=== PATIENT | male | born 1995 | race Caucasian/White ===

== ENCOUNTER 2019-12-28 17:36 | Emergency (ER) | payer SELFPAY ==
[~2019-12-28 17:36] MED LIST: Iopamidol-370 76% 500 ML 1 ML ONE
--- NOTE | 2019-12-28 18:06 | RAD ---
Chest AP view INDICATION: Chest pain COMPARISON: None FINDINGS: Lungs:The lungs are clear Cardiac silhouette:The cardiomediastinal silhouette appears within normal limits. Pulmonary vasculature:Normal Pleural spaces:No pleural effusion or pneumothorax is demonstrated. Upper abdomen:No abnormality seen. Osseous structures: No acute osseous abnormality. Additional findings:Mild thoracolumbar scoliosis IMPRESSION: No acute cardiopulmonary abnormality.
[2019-12-28 18:30] LABS: #Basophils 0.1 thou/uL (0.0-0.2); #Eosinphils 0.1 thou/uL (0.0-0.7); #Lymphocytes 2.9 thou/uL (1.20-3.40); #Monocytes 0.5 thou/uL (0.11-0.59); %Basophils 1.2 % (0.0-1.0); %Eosinophils 1.5 % (0.0-10.0); %Lymphocytes 44.2 % (21.0-51.0); %Monocytes 7.6 % (0.0-10.0); %Neutrophils 45.5 % (42.0-75.0); Hemoglobin 15.5 g/dL (14.0-18.0); Mean Corpuscular HGB CONC 33.9 g/dL (32.0-36.0); Mean Corpuscular Hemoglobin 28.3 pg (27.0-31.0); Mean Corpuscular Volume 83.4 fL (78.0-98.0); Mean Platelet Volume 7.1 fL (7.4-10.4); Platelet Count 291 thou/uL (130-400); RBC Distribution Width 11.3 % (11.5-14.5); Red Blood Cell (RBC) Count 5.48 mill/uL (4.70-6.10); White Blood Cell (WBC) Count 6.5 thou/uL (4.8-10.8)
--- NOTE | 2019-12-28 18:54 | CT ---
CTA Angio Chest W WO Con 12/28/2019 6:14 PM Indication: Chest pain and left arm pain with lightheadedness for the last 3 weeks Technique: Multiple CTA images were obtained of the thorax with IV contrast. 3-D rendering: MIP wilda nstructed images were created and reviewed. Comparison: No relevant prior studies available. Findings: Pulmonary arteries: No central or segmental pulmonary embolus is evident. Heart and Aorta: Normal appearing. Mediastinum:Normal appearing. No enlarged lymph nodes. Lungs:The lungs are clear. Pleural space: Clear. Upper Abdomen: No acute abnormality. Osseous Structures: No acute osseous abnormality. Mild thoracolumbar scoliosis. Soft tissues:No abnormality. Other findings:None. Impression: No central or segmental pulmonary embolus.
[2019-12-28 18:56] LABS: ALT (SGPT) 9 U/L (8-55); AST (SGOT) 14 U/L (5-34); Albumin 5.1 g/dL (3.5-5.0); Alkaline Phosphatase 41 U/L (40-110); Anion Gap 13 mmol/L (10-20); BUN (Urea Nitrogen) 12 mg/dL (8.9-20.6); Bilirubin, Total 0.4 mg/dL (0.2-1.2); CK (CPK) 66 U/L (30-200); Calc. Creatinine Clearance 0 mL/min (70-130); Calcium 10.1 mg/dL (7.8-10.44); Carbon Dioxide 26 mmol/L (22-29); Chloride 102 mmol/L (98-107); Estimated GFR-MDRD 74; Globulin 3.1 g/dL (2.4-3.5); Glucose 93 mg/dL (70-105); Potassium 4.1 mmol/L (3.5-5.1); Protein, Total 8.2 g/dL (6.0-8.3); Sodium 137 mmol/L (136-145)
== END 2019-12-28 20:12 | disposition home or self-care (01) ==
LOC: ERS 17:36
DX: R07.9 Chest pain, unspecified (principal)
CPT/HCPCS: 71045; 71275; 80053; 82550; 84443; 84484; 85025; 93005; Q9967

== ENCOUNTER 2020-01-15 12:02 | Emergency (ER) | payer BC, SELFPAY ==
--- NOTE | 2020-01-15 12:37 | RAD ---
Portable frontal chest radiograph: 01/15/2020 COMPARISON: 12/28/2019 HISTORY: Cough, vomiting blood, chest tightness FINDINGS: There is stable mid thoracic spine dextroscoliosis. No pneumothorax, pleural fluid, focal c onsolidation, or alveolar edema. IMPRESSION: No acute findings.
[2020-01-15 12:42] LABS: #Eosinphils 0.1 thou/uL (0.0-0.7); #Lymphocytes 1.9 thou/uL (1.20-3.40); #Monocytes 0.3 thou/uL (0.11-0.59); #Neutrophils 2.7 thou/uL (1.40-6.50); %Basophils 0.5 % (0.0-1.0); %Monocytes 6.4 % (0.0-10.0); %Neutrophils 54.1 % (42.0-75.0); Hemoglobin 15.7 g/dL (14.0-18.0); Mean Corpuscular HGB CONC 35.5 g/dL (32.0-36.0); Mean Corpuscular Hemoglobin 29.6 pg (27.0-31.0); Mean Corpuscular Volume 83.5 fL (78.0-98.0); Mean Platelet Volume 6.7 fL (7.4-10.4); Platelet Count 271 thou/uL (130-400); RBC Distribution Width 11.3 % (11.5-14.5); White Blood Cell (WBC) Count 5.1 thou/uL (4.8-10.8)
[2020-01-15 13:04] LABS: ALT (SGPT) 14 U/L (8-55); AST (SGOT) 15 U/L (5-34); Albumin 5.1 g/dL (3.5-5.0); Alkaline Phosphatase 39 U/L (40-110); Anion Gap 14 mmol/L (10-20); BUN (Urea Nitrogen) 10 mg/dL (8.9-20.6); Bilirubin, Total 0.6 mg/dL (0.2-1.2); CK (CPK) 59 U/L (30-200); Calc. Creatinine Clearance 0 mL/min (70-130); Calcium 10.1 mg/dL (7.8-10.44); Carbon Dioxide 27 mmol/L (22-29); Chloride 102 mmol/L (98-107); Estimated GFR-MDRD Greater than 90; Glucose 89 mg/dL (70-105); Potassium 3.9 mmol/L (3.5-5.1); Protein, Total 8.1 g/dL (6.0-8.3); Sodium 139 mmol/L (136-145)
[2020-01-15 13:15] LABS: CKMB 0.3 ng/mL (0-6.6)
== END 2020-01-15 15:33 | disposition home or self-care (01) ==
LOC: ERS 12:02
DX: R07.89 Other chest pain (principal)
CPT/HCPCS: 71045; 80053; 82550; 82553; 83880; 84484; 85025; 93005; 93306; 96360

== ENCOUNTER 2020-04-09 02:29 | Emergency (ER) | payer BC ==
[2020-04-09] MEDS ORDERED: predniSONE 20 MG TAB ONE (02:50)
== END 2020-04-09 02:54 | disposition home or self-care (01) ==
LOC: ERS 02:29
DX: J45.901 Unspecified asthma with (acute) exacerbation (principal); M41.9 Scoliosis, unspecified; Z79.51 Long term (current) use of inhaled steroids
CPT/HCPCS: 99284; J7512

== ENCOUNTER 2020-04-21 05:35 | Emergency (ER) | payer BC ==
--- NOTE | 2020-04-21 08:31 | RAD ---
PORTABLE CHEST 1 VIEW: DATE: 04/21/2020. TIME: 5:18 AM. HISTORY: Chest pain. FINDINGS: Comparison is made with the exam of 01/15/2020. The heart size is normal. The lungs are expanded without focal areas of consolidation, pneumothorace s, or pleural effusions. IMPRESSION: No radiographic evidence of acute cardiopulmonary disease. POS: [facility]
== END 2020-04-21 06:31 | disposition home or self-care (01) ==
LOC: ERS 05:35
DX: R06.00 Dyspnea, unspecified (principal); M41.9 Scoliosis, unspecified
CPT/HCPCS: 71045

== ENCOUNTER 2020-05-23 13:01 | Outpatient (CLI) | payer BC ==
--- NOTE | 2020-05-23 14:33 | RAD ---
CHEST 2 VIEWS: Date: 05/07/2020 HISTORY: Dyspnea. COMPARISON: 04/21/2020. FINDINGS: Mild stable dextroscoliosis lower thoracic vertebral column. Heart size is normal. The lungs are benigno r of acute process. IMPRESSION: No significant acute intrathoracic disease. POS: [facility]
== END 2020-05-23 13:02 | disposition home or self-care (01) ==
LOC: BICRAD 13:01
PROVIDERS: ATTEND Internal Medicine Critical Care Medicine
DX: R06.00 Dyspnea, unspecified (principal)
CPT/HCPCS: 71046

== ENCOUNTER 2020-08-11 12:56 | Outpatient (CLI) | payer BC ==
--- NOTE | 2020-08-11 13:41 | RAD ---
XR Cerv Sp Ap Lat STANDARD HISTORY: Neck pain FINDINGS: No fracture, subluxation or bony destruction is identified. The prevertebral soft tissues are normal. IMPRESSION: Unremarkable exam.
== END 2020-08-11 12:57 | disposition home or self-care (01) ==
LOC: BICRAD 12:56
PROVIDERS: ATTEND Physician Assistant
DX: M54.2 Cervicalgia (principal)
CPT/HCPCS: 72040

== ENCOUNTER 2020-11-03 08:47 | Outpatient (CLI) | payer BC ==
--- NOTE | 2020-11-03 09:35 | RAD ---
THORACIC SPINE 3 VIEWS: INDICATION: Thoracic pain. FINDINGS: In the AP projection, there is a scoliotic curvature of the thoracic spine with convexity to the righ t measured at approximately 25 degrees. The apex is at the T9-T10 level. On the lateral view, the thoracic vertebrae maintain normal height and alignment. There is no lytic or blastic process. No acute abnormality. IMPRESSION: Mild scoliotic curvature of the lower thoracic spine with convexity to the right as described. POS: [facility]
== END 2020-11-03 08:48 | disposition home or self-care (01) ==
LOC: BICRAD 08:47
PROVIDERS: ATTEND Orthopaedic Surgery
DX: M54.6 Pain in thoracic spine (principal); M41.9 Scoliosis, unspecified
CPT/HCPCS: 72072